=== PATIENT | female | born 1950 ===

== ENCOUNTER → 2024-09-03 08:23 | Outpatient (REF) | payer MEDICARE, SELFPAY ==
--- OUTSIDE RECORDS SUMMARY | 2024-09-06 11:53 | XMS_ITS | Clinical Summary ---
Author Organization [facility] Address [address] [place] [address]. [place] [address] [place] [address] Care Team Providers Care Calendering Machine Operator Name Role Phone Odette Metz MD Primary Care Provider [phone]- [phone] Encounters Date Type Department Care Team Description 06/26/2024 7:49 AM BROOMCORN SCRAPER - 06/26/2024 11:59 PM BROOMCORN SCRAPER Hospital Encounter [facility] [address] [place] [address] Beryl Herrera, [facility]- Discharge Disposition: Home or Self Care (Routine Discharge) 06/26/2024 Travel from Last 3 Months Social History Tobacco Use Types Packs/Day Years Used Date Smoking Tobacco: Never Assessed Comments Unknown Sex and Gender Information Value Date Recorded Sex Assigned at Not on file Legal Sex Female 5:44 PM BROOMCORN SCRAPER Gender Identity Not on file Sexual Orientation Not on file Plan of Treatment Health Maintenance Due Date Last Done Comments Colorectal Cancer Screening Colonoscopy (10 Years) 1950 Hepatitis C 1968 DTaP, Tdap and Td Vaccines (1 - Tdap) 1969 Mammogram Screening 1990 Zoster Vaccines (1 of 2) 2000 Annual Medicare Wellness Visit 2015 Dexa Scan (General) 2015 Pneumococcal Vaccine: 65+ Years (1 of 1 - PCV) 2015 RSV Immunization or 60+ Years Completed 08/18/2023 COVID-19 Vaccine Completed 05/28/2024, , 09/30/2022, Additional history exists Influenza Adult Completed 05/28/2024, 07/16, 04/21/2021, Additional history exists Meningococcal Vaccine Aged Out No ezequiel valentin eligible based on patient's age to complete this topic RSV Immunizations Under 20 Months Aged Out No longer eligible based on patient's age to complete this topic Procedures Procedure Name Priority Date/Time Associated Diagnosis Comments MRI PEL WWO CON Routine 06/26/2024 9:16 AM BROOMCORN SCRAPER Recurrent UTI History of pubovaginal sling from Last 3 Months Results * MRI PEL WWO CON (06/26/2024 9:16 AM BROOMCORN SCRAPER) Anatomical Region Laterality Modality Pelvis Magnetic Resonan ce 07/04/2024 8:56 AM BROOMCORN SCRAPER Impressions 07/04/2024 9:22 AM BROOMCORN SCRAPER IMPRESSION: Unremarkable MRI of the pelvis. Ordered By: BERYL HERRERA Interpreted By: Ryan Wilkerson MD, 07/04/2024 8:56 AM Narrative 07/04/2024 9:22 AM BROOMCORN SCRAPER [address] [place] [address] Examination: MRI PEL WWO CON Exam time: 06/26/2024 8:57 AM Clinical history: Recurrent UTI. Comparison: No comparison. Technique: Multiplanar, multisequence MR images of the pelvis were obtained before and after demonstration of contrast. 15 mL of dotarem administered without adverse event. Findings: Motion artifact is present and degrades image quality, limiting sensitivity. The uterus is surgically absent. The vaginal canal appears normal. No free fluid is seen within the pelvis. No pelvic or inguinal lymphadenopathy is identified. The urinary bladder is decompressed but otherwise appears unremarkable with no wall thickening or trabeculation. The urethra appears unremarkable. No abnormal enhancement is identified. No marrow signal abnormality noted. Pelvic musculature appears intact. Procedure Note Ryna Wilkerson MD - 07/04/[address] [place] [address] Examination: MRI PEL WWO CON Exam time: 06/26/2024 8:57 AM Clinical history: Recurrent UTI. Comparison: No comparison. Technique: Multiplanar, multisequence MR images of the pelvis wereobtained before and after demonstration of contrast. 15 mL of dotaremadministered without adverse event. Findings: Motion artifact is present and degrades image quality, limitingsensitivity. The uterus is surgically absent. The vaginal canal appearsnormal. No free fluid is seen within the pelvis. No pelvic or inguinallymphadenopathy is identified. The urinary bladder is decompressed butotherwise appears unremarkable with no wall thickening or trabeculation.The urethra appears unremarkable. No abnormal enhancement is identified.No marrow signal abnormality noted. Pelvic musculature appears intact. IMPRESSION: Unremarkable MRI of the pelvis. Ordered By: BERYL HERRERA Interpreted By: Ryan Wilkerson MD, 07/04/2024 8:[address] DESIGN DRAFTSPERSON-BC MRI Final Result from Last 3 Months [place] [address] MEDICARE [facility] Care Teams Calendering Machine Operator Relationship Specialty Start Date End Date Odette Metz MD [address] [place] [address] [place] [address] PCP - General FAMILY PRACTICE 06/26/24
== END ==
LOC: ANHLAB 08:23
PROVIDERS: Visit Provider Plastic Surgery
DX: L82.1 Other seborrheic keratosis (principal); D48.5 Neoplasm of uncertain behavior of skin
CPT/HCPCS: 88305